=== PATIENT | male | born 1955 | race Caucasian/White ===

== ENCOUNTER 2019-08-30 07:23 | Day surgery (SDC) | payer MEDICARE, OTHER ==
[~2019-08-30 07:23] MED LIST: CEFAZOLIN SODIUM 2 GM in DEXTROSE 5%-WATER 100 ML IV PRN; DEXAMETHASONE SOD PHOSPHATE INJ 4 MG/1 ML VIAL ONE; FENTANYL CITRATE INJ/PF 100 MCG/2 ML AMPUL ONE; MIDAZOLAM 2 MG/2 ML INJ ONE; ONDANSETRON HCL INJ/PF 4 MG/2 ML SDV ONE; PROPOFOL INJ 200 MG/20 ML VIAL IV ONE
[2019-08-30] MEDS ORDERED: BUPIVACAINE HCL 0.5 % INJ/PF 30 ML SDV ONE (07:26)
[2019-08-30] MEDS ORDERED: LIDOCAINE 1% INJ-PF (10 MG/ML) 30 ML SDV ONE (07:26)
[2019-08-30 07:57] LABS: HEMATOCRIT 49.2 % (37.9-51.0); HEMOGLOBIN 16.7 g/dL (13.5-17.0); MEAN CORPUSCULAR HEMOGLOBIN 30.2 pg (27.0-33.4); MEAN CORPUSCULAR HGB CONC 33.9 g/dL (32.0-36.0); MEAN CORPUSCULAR VOLUME 89 fl (80-97); PLATELET COUNT 211 10^3/uL (150-450); RED BLOOD COUNT 5.53 10^6/uL (4.35-5.55); RED CELL DISTRIBUTION WIDTH 14.2 % (11.5-14.0); WHITE BLOOD COUNT 4.9 10^3/uL (4.0-10.5)
[2019-08-30 08:15] LABS: ALKALINE PHOSPHATASE 69 U/L (38-126); ANION GAP 8 (5-19); ASPARTATE AMINO TRANSFERASE 40 U/L (17-59); BILIRUBIN,DIRECT 0.1 mg/dL (0.0-0.4); BILIRUBIN,TOTAL 0.6 mg/dL (0.2-1.3); BLOOD UREA NITROGEN 21 mg/dL (7-20); CALCIUM 9.5 mg/dL (8.4-10.2); CARBON DIOXIDE 27 mmol/L (22-30); CHLORIDE 107 mmol/L (98-107); GLUCOSE 98 mg/dL (75-110); POTASSIUM 4.9 mmol/L (3.6-5.0); TOTAL PROTEIN 6.9 g/dL (6.3-8.2)
[2019-08-30] MEDS ORDERED: DIPHENHYDRAMINE HCL 50 MG/ML VIAL IV PRN (09:29)
[2019-08-30] MEDS ORDERED: PROMETHAZINE HCL INJ 25 MG/1 ML VIAL IV PRN ×2 (09:29)
[2019-08-30] MEDS ORDERED: MEPERIDINE HCL/PF INJ 25 MG/1 ML DISP.SYRIN IV PRN (09:29)
[2019-08-30] MEDS ORDERED: FENTANYL CITRATE INJ/PF 100 MCG/2 ML AMPUL IV PRN ×3 (09:29)
[2019-08-30] MEDS ORDERED: ONDANSETRON HCL INJ/PF 4 MG/2 ML SDV IV PRN ×2 (09:29→10:25)
--- NOTE | 2019-08-30 10:22 | Operative Report ---
Operative Report DATE OF SURGERY: 08/30/19 PREOPERATIVE DIAGNOSIS: Left carpal tunnel syndrome POSTOPERATIVE DIAGNOSIS: Left carpal tunnel syndrome OPERATION: Left carpal tunnel release SURGEON: JODY LEON ANESTHESIA: GA COMPLICATIONS: None ESTIMATED BLOOD LOSS: Minimal INTRAOPERATIVE FINDINGS: Persistent median artery PROCEDURE: Indications for procedure: Patient is a 64-year-old man with left carpal tunnel syndrome. He has failed nonoperative treatment including splinting and cortisone injection. Description of procedure: Following the induction of a general anesthetic into grams of Ancef: The patient was positioned supine on the operating room table. All bony prominences were padded. The left upper extremity was sterilely prepped with ChloraPrep and draped in standard fashion. 2 cm incision was made in the palm based distally on the maximally abducted thumb in line with the third fourth digital interspace. Sharp incision was performed through skin. All bleeders were coagulated with bipolar electrocautery. The transverse carpal ligament was identified. Transverse carpal ligament was transected starting distally and progressing proximally. As the proximal margin of the wrist crease was reached, the wrist was flexed allowing transection of the transverse carpal ligament and superficial forearm fascia under direct visualization. Distally the ligament was transected to the level of the superficial arch which was visualized. Of note there was a persistent median artery present. At the conclusion of the procedure the motor branch the median nerve superficial arch were both again visualized there were both completely decompressed and intact. The wound was copiously irrigated. The skin was reapproximated with 3-0 monofilament suture. 0.25% Marcaine was injected into the wound for postoperative analgesia. A bulky sterile dressing was then applied. The patient tolerated procedure well without complications was brought to recovery room in stable condition.
[2019-08-30] MEDS ORDERED: OXYCODONE-ACETAMINOPHEN 5-325 MG TABLET PO PRN (10:23)
[2019-08-30] MEDS ORDERED: SUCCINYLCHOLINE CHLORIDE INJ 200 MG/10 ML VIAL ONE (13:10)
[2019-08-30 14:24] VITALS: BP 140/89
--- NOTE | 2019-08-30 15:04 | EKG REPORT ---
SEVERITY:- ABNORMAL ECG - SINUS RHYTHM NONSPECIFIC INTRAVENTRICULAR CONDUCTION DELAY PROBABLE LATERAL INFARCT, OLD TALL R WAVE IN V2, CONSIDER RVH OR PMI : Confirmed by: Star Sanford MD 30-Aug-2019 15:03:46
== END 2019-08-30 11:32 | disposition home or self-care (01) ==
LOC: OROUT 07:23
PROVIDERS: ATTEND Orthopaedic Surgery
DX: G56.02 Carpal tunnel syndrome, left upper limb (principal); K21.9 Gastro-esophageal reflux disease without esophagitis; Z91.041 Radiographic dye allergy status; E66.9 Obesity, unspecified; Z79.899 Other long term (current) drug therapy
CPT/HCPCS: 36415; 85027; 80053; 93005; 93010; 01810; 64721; J2250; J3490; J0690; J1100; J3010; J0330; J2405; J7060; J2704; 1810

== ENCOUNTER 2020-04-26 01:51 | Emergency (ER) | payer MEDICARE, OTHER ==
[2020-04-26 03:04] LABS: ABSOLUTE EOSINOPHILS # (AUTO) 0.1 10^3/uL (0.0-0.6); ABSOLUTE MONOCYTES (AUTO) 0.9 10^3/uL (0.1-1.4); BASOPHILS % (AUTO) 0.4 % (0-2); EOSINOPHILS % (AUTO) 1.4 % (0-6); HEMATOCRIT 40.4 % (37.9-51.0); LYMPHOCYTES % (AUTO) 12.1 % (13-45); MEAN CORPUSCULAR HEMOGLOBIN 31.7 pg (27.0-33.4); MEAN CORPUSCULAR HGB CONC 34.6 g/dL (32.0-36.0); MEAN CORPUSCULAR VOLUME 92 fl (80-97); MONOCYTES % (AUTO) 11.6 % (3-13); PLATELET COUNT 148 10^3/uL (150-450); RED BLOOD COUNT 4.41 10^6/uL (4.35-5.55); RED CELL DISTRIBUTION WIDTH 14.7 % (11.5-14.0); SEGMENTED NEUTROPHILS % (AUTO) 74.5 % (42-78); TOTAL CELLS COUNTED % (AUTO) 100 %
[2020-04-26 03:13] LABS: ALKALINE PHOSPHATASE 52 U/L (38-126); ANION GAP 5 (5-19); ASPARTATE AMINO TRANSFERASE 25 U/L (17-59); BILIRUBIN,TOTAL 0.5 mg/dL (0.2-1.3); BLOOD UREA NITROGEN 18 mg/dL (7-20); CALCIUM 8.3 mg/dL (8.4-10.2); CARBON DIOXIDE 25 mmol/L (22-30); CHLORIDE 106 mmol/L (98-107); GLUCOSE 101 mg/dL (75-110); POTASSIUM 4.2 mmol/L (3.6-5.0); TOTAL PROTEIN 5.2 g/dL (6.3-8.2)
[2020-04-26 03:23] LABS: APPEARANCE,URINE SLIGHTLY-CLOUDY; BILIRUBIN,URINE NEGATIVE (NEGATIVE); COLOR,URINE YELLOW; GLUCOSE, URINE NEGATIVE (NEGATIVE); KETONES,URINE NEGATIVE (NEGATIVE); LEUKOCYTE ESTERASE,URINE SMALL (NEGATIVE); NITRITE,URINE NEGATIVE (NEGATIVE); PROTEIN,URINE 100 mg/dL (NEGATIVE); URINE SPECIFIC GRAVITY 1.014; UROBILINOGEN,URINE NEGATIVE mg/dL (<2.0)
--- NOTE | 2020-04-26 04:22 | ER Document Report ---
ED General - General Chief Complaint: Flank Pain Stated Complaint: LEFT FLANK PAIN Time Seen by Provider: 04/26/20 02:45 Primary Care Provider: ILDEFONSO COHEN MD [NO LOCAL MD] - Follow up as needed EUNICE BHAT III, MD [Primary Care Provider] - Follow up as needed Notes: 65-year-old male with past medical history of 2 stent placements, GERD, chronic prostatitis presenting today with left lower abdominal pain for approximately 2 days. States that he went to [facility] emergency room yesterday due to the pain. States that it showed a very narrow ureter. States that the provider called Dr. Cohen who he has been seeing for pain with urination who recommended that he have a urinary catheter placed and follow-up in the office for evaluation. Patient states that the pain did go away and he took pain medication that he was prescribed which did help alleviate the symptoms. Patient states that he developed the same pain this morning and he was unable to tolerate the pain. He arrived via EMS who provided him IM Toradol. Patient is resting comfortably in the bed. States that his pain has decreased since the Toradol but he has concerns of when the pain returned. States that he cannot go another night with having that type of pain. He denies any nausea or vomiting at this time. States he does still have the pain with urination still. He was diagnosed with chronic prostatitis approximately 1 month ago. He has been on doxycycline since which has provided no real relief of his symptoms. Recently saw the urologist last week who continued him on the medication. Patient reports that he continues to have rectal pain. Patient has no documentation of the emergency room visit yesterday. States he has not had a bowel movement in 2 days. Feels like his abdomen is enlarged. Currently has a urinary catheter in place. States he is noticed some blood in his urine. TRAVEL OUTSIDE OF THE [place] IN LAST 30 DAYS: No - Related Data Allergies/Adverse Reactions: CONTRAST DYE Allergy (Uncoded 08/30/19 08:16) Past Medical History - Social History Smoking Status: Never Smoker Family History: Reviewed & Not Pertinent Patient has homicidal ideation: No - Past Medical History Cardiac Medical History: Reports: Hx Coronary Artery Disease - 1 HEART STENT 2017 Denies: Hx Heart Attack, Hx Hypertension Pulmonary Medical History: Denies: Hx Asthma, Hx Bronchitis, Hx COPD, Hx Pneumonia Neurological Medical History: Denies: Hx Cerebrovascular Accident, Hx Seizures Musculoskeletal Medical History: Denies Hx Arthritis - Immunizations Hx Diphtheria, Pertussis, Tetanus Vaccination: Yes Review of Systems - Review of Systems Constitutional: No symptoms reported EENT: No symptoms reported Cardiovascular: No symptoms reported Respiratory: No symptoms reported Gastrointestinal: See HPI Genitourinary: See HPI Male Genitourinary: See HPI Musculoskeletal: No symptoms reported Skin: No symptoms reported Hematologic/Lymphatic: No symptoms reported Neurological/Psychological: No symptoms reported Physical Exam - Vital signs Vitals: Temp Pulse Resp BP Pulse Ox 98.4 F 85 20 135/82 H 99 04/26/20 01:53 04/26/20 01:53 04/26/20 01:53 04/26/20 01:53 04/26/20 01:53 Interpretation: Normal - Notes Notes: Adult General: GENERAL: Alert, interacts well. No acute distress HEAD: Normocephalic, atraumatic EYES: Pupils equal, round and reactive to light. Extraocular movements intact. ENT: Airway patent. Nares patent. NECK: Full range of motion. Supple. Trachea midline. No lymphadenopathy. LUNGS: Clear to auscultation bilaterally, no wheezes, rales, or rhonchi. No respiratory distress. Nontender chest wall. HEART: Regular rate and rhythm. No murmurs, rubs or gallops. ABDOMEN: Soft, tender at left lower abdomen. Nondistended. (-) [place] sign. Bowel sounds present in all 4 quadrants. No rebound, guarding or masses. GENITOURINARY: Deferred at this time EXTREMITIES: Moves all 4 extremities spontaneously. No edema, normal radial and dorsal pedis pulses bilaterally. No cyanosis. BACK: No cervical, thoracic, lumbar midline tenderness. (-) CVA tenderness. No saddle anesthesia, normal distal neurovascular exam. Moves all extremities with full range of motion. NEUROLOGICAL: Alert and oriented x3. Normal speech. Strength 5/ 5 in all extremities. PSYCH: Normal affect, normal mood. SKIN: Warm, dry, normal turgor. No rashes or lesions noted. Course - Re-evaluation Re-evalutation: 04/26/20 06:15 I went back to revaluate patient. He states he is still in no pain. I discussed with patient that we are still pending the CT imaging results from [facility]. He expresses frustration that he should have just gone to [facility] but the EMS would not take him there. He also expresses frustration that he is concerned that if he leaves he will developed the pain again and states he cannot tolerate the pain when it occurs. I attempted to get results of the CT scan performed at [facility]. Initially was sent via [employer]. Was unable to access the radiologist interpretation. I attempted to contact [facility] to have the results faxed to me. I received fax around [phone]. I have called urology agronomy supervisor at [facility] for consult. 04/26/20 08:14 Urology PA Beau Ferrer returned my phone call. States she is familiar with this patient. As his pain is controlled and his creatinine is wnl does not believe that patient is a surgical emergency and that patient can call on Monday to schedule a follow up appointment. Also states that the catheter was placed due to the stranding around the bladder with concerns of decrease functioning of the bladder causing the hydro. States that he had improvement in pain after insertion of the catheter and recommend he keeps the catheter in until he is seen in the office. I discussed this with the patient. He is frustrated agreeable with the plan. Continues to deny being in pain at this time. I prescribed him Toradol to take for his pain. I discussed that he can return to the emergency department if he has worsening symptoms or development of new symptoms. Also encouraged him to call on Monday to schedule a follow-up appointment with his urologist. Patient acknowledges and verbalizes understanding of instructions and plan. All questions answered - Vital Signs Vital signs: Temp Pulse Resp BP Pulse Ox 98.4 F 85 20 135/82 H 99 04/26/20 01:58 04/26/20 01:53 04/26/20 01:53 04/26/20 01:53 04/26/20 01:53 - Laboratory Result Diagrams: 04/26/20 02:54 04/26/20 02:54 Laboratory results interpreted by me: 04/26/20 04/26/20 04/26/20 02:54 02:54 02:54 RDW 14.7 H Plt Count 148 L Lymph % (Auto) 12.1 L Sodium 136.1 L Calcium 8.3 L Total Protein 5.2 L Albumin 3.0 L Urine Protein 100 H Urine Blood LARGE H Ur Leukocyte Esterase SMALL H Discharge - Discharge Clinical Impression: Hydroureter on left Hydronephrosis Qualifiers: Hydronephrosis type: unspecified Qualified Code(s): N13.30 - Unspecified hydronephrosis Condition: Stable Disposition: HOME, SELF-CARE Additional Instructions: I have discussed the case with your urologist. They recommend you keep the catheter in place and call them on Monday to schedule a follow up appointment. Please call Dr. Cohen's office on Monday morning to schedule a follow-up appointment. You may follow-up with the emergency department if you have worsening symptoms or development of new symptoms. Please take the medication as prescribed for pain as needed. Prescriptions: Ketorolac Tromethamine [Toradol 10 mg Tablet] 10 mg PO Q6HP PRN 5 Days #20 tablet PRN Reason: Referrals: EUNICE BHAT III, MD [Primary Care Provider] - Follow up as needed ILDEFONSO COHEN MD [ LOCAL MD] - Follow up as needed
[2020-04-26 08:21] VITALS: BP 140/64
== END 2020-04-26 08:19 | disposition home or self-care (01) ==
LOC: ER 01:51
DX: N13.30 Unspecified hydronephrosis (principal); N13.4 Hydroureter; R10.32 Left lower quadrant pain
CPT/HCPCS: 36415; 80053; 81001; 83690; 85025; 99284